=== PATIENT | female | born 1935 | race Caucasian/White ===

== ENCOUNTER 2016-05-23 17:48 | Emergency (ER) | payer MEDICARE, BC | END 2016-05-23 19:26 | disposition home or self-care (01) | LOC: D.ER 17:48 → EDBD 17:48 → D.ER 19:26 | DX: S81.812A Laceration without foreign body, left lower leg, initial encounter (principal); W45.8XXA Other foreign body or object entering through skin, initial encounter; Y93.89 Activity, other specified; Y92.89 Other specified places as the place of occurrence of the external cause; S81.802A Unspecified open wound, left lower leg, initial encounter ==